=== PATIENT | male | born 1970 | race Caucasian/White ===

== ENCOUNTER 2018-04-23 16:38 | Emergency (ER) | payer BC ==
[~2018-04-23] VITALS: Ht 180.3 cm; Wt 108.0 kg
[2018-04-23 16:42] VITALS: BP 158/105; Ht 180.3 cm; Wt 108.0 kg
== END 2018-04-23 17:24 | disposition home or self-care (01) ==
LOC: ED 16:38
DX: S54.02XA Injury of ulnar nerve at forearm level, left arm, initial encounter (principal); X58.XXXA Exposure to other specified factors, initial encounter; Y93.89 Activity, other specified; Y92.89 Other specified places as the place of occurrence of the external cause; Y99.8 Other external cause status